=== PATIENT | female | born 1980 | race Caucasian/White ===

== ENCOUNTER 2022-10-26 09:41 | Emergency (ER) | payer OTHER ==
[~2022-10-26] VITALS: Ht 175.3 cm; Wt 73.1 kg
[2022-10-26 09:51] VITALS: BP 129/54
--- NOTE | 2022-10-26 09:55 | NUR ---
PT AMB TO BED 11.
--- NOTE | 2022-10-26 10:05 | NUR ---
Patient being evaluated by DR MONAE at bedside.
[2022-10-26] MEDS ORDERED: ACETAMINOPHEN 325 MG TAB PO ONE (10:15)
[2022-10-26] MEDS ORDERED: methocarbamoL 500 MG TAB PO STA (10:26)
[2022-10-26] MEDS ORDERED: KETOROLAC 15 MG/ML VIAL IM ONE (10:30)
[2022-10-26] MEDS ORDERED: diazePAM 5 MG TAB PO ONE (10:30)
--- NOTE | 2022-10-26 10:45 | NUR ---
42/F PRESENTS TO ED WITH C/O LEFT SIDE OF NECK PAIN RADIATING DOWN LEFT SIDE OF BODY. PATIENT REPORTS SHE WAS SLEEPING AND ATTEMPTED TO TURN TO HER SIDE AND "HEARD A POP" IN HER NECK. REPORTS SHE HAS DIFFICULTY TURNING HER NECK AND USING LEFT SIDE OF HER BODY. DENIES TAKING MEDS FOR PAIN, PATIENT DENIES NUMBNESS/TINGLING, PATIENT WITH BILATERAL HOSPITAL SECRETARY, NO FACIAL DROOP NOTED, SPEAKING IN FULL CLEAR SENTENCES, SENSATION EQUAL BILATERALLY.
--- NOTE | 2022-10-26 12:30 | NUR ---
PATIENT SITTING UP IN BED, STATES RELIEF OF PAIN AT THIS TIME. ALL NEEDS MET AT THIS TIME.
[2022-10-26] MEDS ORDERED: MORPHINE SULFATE 4 MG/ML SYR IM ONE (12:45)
[2022-10-26] MEDS ORDERED: IBUP-2213 PO (12:53)
[2022-10-26] MEDS ORDERED: METH-1681 PO (12:53)
[2022-10-26 13:04] VITALS: BP 154/90
--- NOTE | 2022-10-26 13:04 | NUR ---
Patient discharged with v/s stable. Written and verbal after care instructions ABOUT CERVICAL SPRAIN, MUSCLE CRAMPS AND SPASMS given and explained. Patient alert, oriented and verbalized understanding of instructions. Ambulatory with steady gait. All questions addressed prior to discharge. ID band removed. Patient advised to follow up with PMD. Rx of IBUPROFEN AND ROBAXIN given. Patient educated on indication of medication including possible reaction and side effects. Opportunity to ask questions provided and answered.
== END 2022-10-26 13:04 | disposition home or self-care (01) ==
LOC: MED 09:41
DX: S13.4XXA Sprain of ligaments of cervical spine, initial encounter (principal); Z79.899 Other long term (current) drug therapy; X58.XXXA Exposure to other specified factors, initial encounter; Y93.89 Activity, other specified; Y92.89 Other specified places as the place of occurrence of the external cause; Y99.8 Other external cause status
CPT/HCPCS: 72050; 81025; 96372; 99284; J1885